=== PATIENT | female | born 1985 | race Caucasian/White ===

== ENCOUNTER 2019-10-14 10:50 | Inpatient (IN) | payer BC ==
[~2019-10-14] VITALS: Ht 167.6 cm; Wt 62.0 kg
[2019-10-14 11:24] VITALS: BP 127/85
[2019-10-14] MEDS ORDERED: CHLORHEXIDINE 15 ML UDC MM ONE (11:30)
[2019-10-14 11:42] LABS: BASOPHILS # (AUTO) 0.03 x10^3/uL (0-0.1); BASOPHILS % (AUTO) 0 % (0-1); EOSINOPHILS # (AUTO) 0.19 x10^3/uL (0-0.4); EOSINOPHILS % (AUTO) 3 % (1-7); LYMPHOCYTES # (AUTO) 2.16 x10^3/uL (1-3.4); LYMPHOCYTES % (AUTO) 33 % (22-44); MD NO; MEAN CORPUSCULAR HEMOGLOBIN 29.5 pg (27.0-34.8); MEAN PLATELET VOLUME 9.4 fL (7.4-10.4); MONOCYTES # (AUTO) 0.56 x10^3/uL (0.2-0.8); MONOCYTES % (AUTO) 9 % (2-9); NEUTROPHILS # (AUTO) 3.61 x10^3/uL (1.8-6.8); NEUTROPHILS % (AUTO) 55 % (42-75); PLATELET COUNT 317 x10^3/uL (130-400); RED BLOOD COUNT 4.77 x10^6/uL (3.82-5.3); RED CELL DISTRIBUTION WIDTH 13.6 % (9.6-15.2)
[2019-10-14 11:48] LABS: HCG UR SG 1.013 (1.003-1.030)
[2019-10-14] MEDS ORDERED: METHYLENE BLUE 10 MG/ML 10ML ONE (11:54)
[2019-10-14] MEDS ORDERED: VASOPRESSIN 20 UNIT/ML, 1ML ONE (11:54)
[2019-10-14] MEDS ORDERED: LACTATED RINGERS 1,000 ML IV SCH (12:00)
[2019-10-14] MEDS ORDERED: SODIUM CHLORIDE 0.9% 100 ML ONE (12:24)
[2019-10-14] MEDS ORDERED: MIDAZOLAM 1 MG/ML, 2ML ONE (12:31)
[2019-10-14] MEDS ORDERED: FENTANYL PF 250 MCG/5ML ONE ×2 (12:31→13:32)
[2019-10-14] MEDS ORDERED: SCOPOLAMINE 1MG PATCH TD ONE (12:42)
[2019-10-14] MEDS ORDERED: ACETAMINOPHEN 500 MG TABLET ONE (12:42)
[2019-10-14] MEDS ORDERED: GABAPENTIN 300 MG CAPSULE ONE (12:43)
[2019-10-14] MEDS ORDERED: MEPERIDINE/PF 25MG/0.5ML IVPush PRN (13:00)
[2019-10-14] MEDS ORDERED: PROMETHAZINE 25 MG/ML, 1ML IVPush PRN (13:00)
[2019-10-14] MEDS ORDERED: hydrALAzine 20 MG/ML, 1ML IV PRN (13:00)
[2019-10-14] MEDS ORDERED: SCOPOLAMINE 1MG PATCH TD SCH (13:00)
[2019-10-14] MEDS ORDERED: LABETALOL 5MG/ML, 20ML IV PRN (13:00)
[2019-10-14] MEDS ORDERED: OXYcodone 5 MG/5 ML ORAL.SOL UDC PO PRN (13:00)
[2019-10-14] MEDS ORDERED: GABAPENTIN 300 MG CAPSULE PO ONE (13:00)
[2019-10-14] MEDS ORDERED: HYDROmorphone 1 MG/ML, 1ML INJ IVPush PRN (13:00)
[2019-10-14] MEDS ORDERED: ACETAMINOPHEN 500 MG TABLET PO ONE (13:00)
[2019-10-14] MEDS ORDERED: morphine SULFATE 10 MG/ML, 1ML IVPush PRN (13:00)
[2019-10-14] MEDS ORDERED: HALOPERIDOL 5 MG/ML IV PRN (13:00)
[2019-10-14] MEDS ORDERED: ROCURONIUM 10MG/ML,5ML ONE (13:32)
[2019-10-14] MEDS ORDERED: NEOSTIGMINE 1 MG/ML, 10ML ONE (13:32)
[2019-10-14] MEDS ORDERED: ONDANSETRON 2MG/ML, 2ML ONE (13:32)
[2019-10-14] MEDS ORDERED: CEFAZOLIN 1,000 MG ONE (13:32)
[2019-10-14] MEDS ORDERED: PROPOFOL 10 MG/ML, 20ML ONE (13:32)
[2019-10-14] MEDS ORDERED: GLYCOPYRROLATE 0.2MG/1ML, 5ML ONE (13:32)
[2019-10-14] MEDS ORDERED: DEXAMETHASONE 4 MG/ML, 1ML ONE (13:32)
[2019-10-14] MEDS ORDERED: KETOROLAC 30 MG/1 ML ONE (13:43)
[2019-10-14] MEDS ORDERED: OXYcodone 5 MG/5 ML ORAL.SOL UDC ONE (14:52)
[2019-10-14] MEDS ORDERED: FENTANYL PF 100 MCG/2ML ONE ×2 (14:52→15:11)
[2019-10-14] MEDS: FENTANYL PF 100 MCG/2ML IV PRN ×6 (14:56→15:40)
[2019-10-14] MEDS ORDERED: MEPERIDINE/PF 25MG/ML,1ML ONE (15:19)
[2019-10-14] MEDS ORDERED: HYDROmorphone 1 MG/ML, 1ML INJ ONE (16:36)
[2019-10-14] MEDS ORDERED: HYDROmorphone 1 MG/ML, 1ML INJ IV ONE (17:00)
[2019-10-14] MEDS ORDERED: POTASSIUM CHLORIDE 20 MEQ in D5%-LACTATED RINGERS 1,000 ML IV SCH (17:00)
[2019-10-14] MEDS ORDERED: ONDANSETRON 2MG/ML, 2ML IV PRN (17:00)
[2019-10-14] MEDS ORDERED: MEPERIDINE/PF 100 MG/ML IM PRN (17:00)
[2019-10-14] MEDS: D5%-LACTATED RINGERS 1,000 ML IV SCH (17:00)
[2019-10-14] MEDS ORDERED: D5%-LACTATED RINGERS 1,000 ML IV SCH (18:00)
[2019-10-14 18:54] VITALS: BP 100/84
[2019-10-14] MEDS: OXYcodone 5 MG/5 ML ORAL.SOL UDC PO PRN ×2 (19:36→23:37)
[2019-10-14] MEDS: KETOROLAC 30 MG/1 ML IV PRN (20:39)
[2019-10-14] MEDS: CEFAZOLIN PMX 1GM/50ML 50 ML IVPB SCH (20:58)
[2019-10-14] MEDS: HYDROmorphone 2 MG/ML, 1ML IV PRN (21:44)
[2019-10-15 00:05] VITALS: BP 108/69
[2019-10-15] MEDS: D5%-LACTATED RINGERS 1,000 ML IV SCH (00:30)
[2019-10-15] MEDS: KETOROLAC 30 MG/1 ML IV PRN (03:02)
[2019-10-15] MEDS: OXYcodone 5 MG/5 ML ORAL.SOL UDC PO PRN ×2 (03:29→08:09)
[2019-10-15] MEDS: CEFAZOLIN PMX 1GM/50ML 50 ML IVPB SCH (05:36)
[2019-10-15] MEDS: HYDROmorphone 2 MG/ML, 1ML IV PRN (06:08)
[2019-10-15 06:55] VITALS: BP 116/71
[2019-10-15] MEDS ORDERED: OXYC5TAB3 PO (08:59)
[2019-10-15] MEDS ORDERED: IBUP-1222 PO (09:00)
[2019-10-15] MEDS ORDERED: KETOROLAC 30 MG/1 ML IV SCH ×2 (09:00→11:00)
[2019-10-15] MEDS ORDERED: IBUPROFEN 600 MG TABLET PO SCH (19:30)
== END 2019-10-15 09:30 | disposition home or self-care (01) | DRG 743 ==
LOC: OUT 10:50 → 4NW 16:38 → OUT 22:32 → 4NW 22:32 → DCLOUNGE 10-15 09:18
PROVIDERS: ADMIT Obstetrics & Gynecology; ATTEND Obstetrics & Gynecology
PROC: 3E0T3BZ Introduction of Anesthetic Agent into Peripheral Nerves and Plexi, Percutaneous Approach (ICD-10-PCS; 2019-10-14)
PROC: 0UB90ZZ Excision of Uterus, Open Approach (ICD-10-PCS; principal; 2019-10-14 12:30)
DX: D25.9 Leiomyoma of uterus, unspecified (principal); Z87.891 Personal history of nicotine dependence; N90.89 Other specified noninflammatory disorders of vulva and perineum; Z20.828 Contact with and (suspected) exposure to other viral communicable diseases
CPT/HCPCS: 36415; J7121; 81025; 85014; 85018; 85025; 86850; 86900; 87635; 88305; G0378; J0690; J1100; J1170; J1885; J2175; J2250; J2405; J2704; J2710; J3010; C1765; J7120; Q9968